=== PATIENT | male | born 1990 | race Caucasian/White ===

== ENCOUNTER 2018-01-30 19:05 | Emergency (ER) | payer OTHER ==
[~2018-01-30] VITALS: Ht 170.2 cm; Wt 60.5 kg
[~2018-01-30 19:05] MED LIST: AMOXICILLIN500 M1 PO; AMOXICILLIN500 MG PO; AMOXICILLIN875 MG PO; ANUSOL-HC21 GM PR; KEFLEX500 MG PO; MIRALAX17 GM PO; MOTRIN600 MG PO; MOTRIN800 MG PO; NO HOME MEDS; NOHOMEMEDS; NORCO 5/3251 TABLET PO; PAROXETINE HCL20 MG PO; PERCOCET 5/31 TABLET PO; ROXICODONE5 MG PO; TRAMADOL HCL50 MG PO; ULTRAM50 MG PO
[2018-01-30 19:57] LABS: BASOPHIL (%) 0.4 % (0-1); EOSINOPHIL (%) 3.4 % (0-5); EOSINOPHIL COUNT 0.3 K/uL (0-0.3); HEMATOCRIT 44.1 % (38.0-50.0); HEMOGLOBIN 15.6 G/DL (12.5-16.6); IMMATURE GRANULOCYTE (%) 0.2 % (0.0-0.7); LYMPHOCYTE (%) 14.7 % (15-42); LYMPHOCYTE COUNT 1.4 K/uL (1.0-2.8); MCHC 35.4 G/DL (30.0-36.0); MCV 87.7 FL (86-99); MONOCYTE COUNT 0.6 K/uL (0-0.8); NEUTROPHIL (%) 75.3 % (45-76); NEUTROPHIL COUNT 7.1 K/uL (1.8-6.4); PLATELET COUNT 187 K/uL (156-360); RBC DIS.WIDTH-CV 12.2 % (11.8-14.6); RBC DIS.WIDTH-SD 39.3 % (39-53); RED BLOOD COUNT 5.03 M/uL (4.00-5.50); WHITE BLOOD COUNT 9.5 K/uL (4.1-10.2)
[2018-01-30 20:05] LABS: INTER. NORMALIZED RATIO 1.2
[2018-01-30 20:07] LABS: CHLORIDE 108 mEq/L (99-109); PTT 28.2 SEC (25-37); SODIUM 141 mEq/L (136-147)
[2018-01-30 20:09] LABS: GLUCOSE 89 mg/dL (70-99)
[2018-01-30 20:13] LABS: CREATININE 0.8 mg/dL (0.6-1.3); GFR ESTIMATE (CALCULATED) > 59 mL/min/ (58.99-99999); UREA NITROGEN (BUN) 12 mg/dL (9-23)
[2018-01-30] MEDS ORDERED: NORCO 5/3251 TABLET PO (22:53)
[2018-01-30] MEDS ORDERED: AUGMENTIN875 MG PO (22:53)
[2018-01-30 23:30] VITALS: BP 109/70
== END 2018-01-30 23:30 | disposition home or self-care (01) ==
LOC: EME → EDBD 19:05 → EME 23:30
PROVIDERS: Emergency Medicine
DX: S02.32XA Fracture of orbital floor, left side, initial encounter for closed fracture (principal); Y04.2XXA Assault by strike against or bumped into by another person, initial encounter; Y93.01 Activity, walking, marching and hiking; F17.200 Nicotine dependence, unspecified, uncomplicated
CPT/HCPCS: 70450; 70486; 72125; 80048; 85025; 85610; 85730; 99281; 99284; J3010